=== PATIENT | male | born 1995 | race Caucasian/White ===

== ENCOUNTER 2017-02-24 18:21 | Inpatient (IN) ==
[2017-02-24 19:18] LABS: Basophils % 0.5 %; Eosinophils # 0.6 K/mcL (0.0-0.6); Eosinophils % 7.8 %; Hematocrit 43.2 % (37.5-50.1); Hemoglobin 15.2 g/dL (12.9-16.9); Immature Granulocytes % 0.4 % (0-4); Lymphocytes # 1.6 K/mcL (0.6-4.6); Lymphocytes % 21.3 %; Mean Corpuscular HGB Conc 35.2 g/dL (31.6-35.5); Mean Corpuscular Hemoglobin 28.8 pg (28.0-33.3); Monocytes # 0.4 K/mcL (0.0-1.3); Monocytes % 5.1 %; Neutrophils # 4.8 K/mcL (1.6-8.9); Platelet Count 136 K/mcL (140-400); Red Blood Count 5.27 M/mcL (4.19-5.50); Red Cell Distribution Width 11.7 % (11.5-14.5); Segmented Neutrophils % 64.9 %
--- NOTE | 2017-02-24 19:23 | Emergency Department Note ---
Disposition Clinical Impression: Delusions Disposition: Admitted As Inpatient Condition: Good Psych HPI - General Chief Complaint: ED Psychiatric Symptoms Stated Complaint: SI/HI can flip at anytime Time Seen by Provider: 02/24/17 18:52 Source: patient Mode of arrival: private vehicle Limitations: no limitations Nursing Notes Reviewed: Yes Vital Signs Reviewed: Yes - History of Present Illness HPI Narrative: 22-year-old male with history of schizophrenia, bipolar, [place], peripheral neuropathy who presents to the ER in the care of his family due to their current concerns for delusions. Family reports that he has been delusional and combative recently. He was hospitalized at [facility] for seizure-like activity and also was inpatient for psychiatry. There was concern that his opiates that he was taking was contributing to his delusions and he was taken off that. He has a complaint of chronic pain diagnosed as peripheral neuropathy. Roughly 1 month ago mother reports that he was combative at home and she called the police. She has a court ordered here showing that as of she has 30 days of guardianship. The patient was deemed incompetent by the courts. He currently denies suicidal or homicidal ideation. He denies auditory visual hallucinations. He does appear to have an unsure grasp of time. Pt complaint: medical clearance request Onset (ago): month(s) Duration: constant History of similar episodes: Yes Improves with: none Worsens with: none Context: not taking psychiatric medications Alleged intoxication: No Associated Psychiatric Symptoms: none Associated symptoms: Reports: other (Back pain) Traumatic symptoms: denies traumatic injury Treatments prior to arrival: none - Related Data Home Medications Medication Instructions Recorded Confirmed Albuterol Neb [Proventil Neb] 2.5 mg IH TID PRN 05/04/15 09/08/16 Albuterol Sulfate [Albuterol 0 puff IH Q4HR PRN 05/04/15 09/08/16 Inhaler] Pantoprazole Sodium [Protonix] 40 mg PO BID 05/04/15 09/08/16 Cholecalciferol (Vitamin D3) 50,000 unit PO QWEEK 06/08/16 09/08/16 [Vitamin D3] Dronabinol [Marinol] 5 mg PO BID 06/08/16 09/08/16 carBAMazepine [Tegretol] 200 mg PO TID 06/08/16 09/08/16 Albuterol Neb [AccuNeb] 0.63 mg IH Q8H PRN 06/13/16 09/08/16 Cyanocobalamin (B-12) [Vitamin B12] 1,000 mcg IM QMONTH 06/13/16 09/08/16 Cyanocobalamin (B-12) [Vitamin B12] 2,000 mcg PO DAILY 06/13/16 09/08/16 FLUoxetine HCl [Prozac] 60 mg PO DAILY 06/13/16 09/08/16 Folic Acid 1 mg PO DAILY 06/13/16 09/08/16 Ondansetron HCl [Zofran] 4 mg PO Q8HR PRN 06/13/16 09/08/16 Thiamine (B-1) [Vitamin B-1] 100 mg PO DAILY 06/13/16 09/08/16 OxyCODONE/APAP 10/325 [Percocet 1 each PO Q6HR 09/08/16 09/08/16 10/325 MG] Previous Rx's Medication Instructions Recorded Lisinopril-HCTZ 10-12.5 [Prinzide 2 each PO DAILY tablet 06/15/16 10-12.5] LORazepam [Ativan] 1 mg PO TID #12 tablet 09/08/16 Allergies Allergy/AdvReac Type Severity Reaction Status Date / Time duloxetine [From Cymbalta] Allergy See Verified 09/08/16 16:46 Comments gabapentin Allergy See Verified 09/08/16 16:46 Comments pregabalin [From Lyrica] Allergy SWELLING Verified 09/08/16 16:46 propranolol Allergy See Verified 09/08/16 16:46 Comments tramadol Allergy Seizure Verified 09/08/16 16:46 escitalopram [From Lexapro] AdvReac Nightmare Verified 09/08/16 16:46 Oxycodone [From OxyContin] AdvReac Nausea Verified 09/08/16 16:46 trazodone AdvReac Agitated Verified 09/08/16 16:46 All systems ED: reviewed and negative except as stated. Cardiovascular: Denies: chest pain Respiratory: Denies: dyspnea Gastrointestinal: Denies: abdominal pain Musculoskeletal: Reports: back pain (Chronic) Psychiatric: Denies: anxiety, depression, suicidal thoughts, homicidal thoughts , auditory hallucinations, visual hallucinations Past Medical History - Past Medical History Attestation: Yes The following information was validated with the patient. Source: patient Medical history: Reports: arthritis, asthma, hypertension, seizures, other Surgical history: Reports: cholecystectomy, other Psychiatric history: Reports: anxiety, depression, prior suicide attempt - Social History Smoking Status: Never smoker Smokeless Tobacco Status: Yes Alcohol use: Reports: none Drug use: Reports: none Physical Exam - General Limitations: no limitations General appearance: alert, in no apparent distress - Head Head exam: atraumatic, normocephalic, normal inspection - Eye Eye exam: Present: normal appearance, EOMI - ENT ENT exam: normal exam - Neck Neck exam: Present: normal inspection, full ROM - Chest Chest inspection: Present: normal inspection, symmetric chest wall rise - Respiratory Respiratory exam: Present: normal lung sounds bilaterally - Cardiovascular Cardiovascular exam: Present: regular rate, normal rhythm, normal heart sounds - Abdominal Exam Abdominal exam: Present: soft, Non-Tender. Absent: tenderness - Extremities Exam Extremities exam: Present: normal inspection, full ROM - Expanded Upper Extremity Exam Shoulder exam: Present: normal inspection, full ROM Arm exam: Present: normal inspection, full ROM Elbow exam: Present: normal inspection, full ROM Forearm/Wrist exam: Present: normal inspection, full ROM Hand exam: Present: normal inspection, full ROM - Expanded Lower Extremity Exam Hip/Pelvis exam: Present: normal inspection, full ROM Upper leg exam: Present: normal inspection, full ROM Knee exam: Present: normal inspection, full ROM Lower leg exam: Present: normal inspection, full ROM Ankle exam: Present: normal inspection, full ROM Foot/toe exam: Present: normal inspection, full ROM - Neurological Exam Neurological exam: Present: alert, other (GCS 15. Nonfocal neurologic exam.) - Psychiatric Psychiatric exam: Present: depressed, flat affect - Expanded Psychiatric Exam Expanded psych exam: Present: poor eye contact - Skin Skin exam: Present: warm, dry, intact, normal color Course Course Narrative: Patient seen and examined. He did have a pink slip signed by the prior attending physician. We will get medical clearance labs for psychiatric evaluation. He currently complains of back pain which is chronic. No new injuries. Vital Signs Temperature 99.0 F 02/24/17 18:29 Pulse Rate 100 02/24/17 18:29 Respiratory Rate 18 02/24/17 18:29 Blood Pressure 144/98 02/24/17 18:29 O2 Sat by Pulse Oximetry 99 02/24/17 18:29 Temperature 98.9 F 02/24/17 23:39 Pulse Rate 81 02/24/17 21:13 Respiratory Rate 18 02/24/17 23:39 Blood Pressure 148/97 02/24/17 23:39 O2 Sat by Pulse Oximetry 95 02/24/17 21:13 Oxygen Delivery Oxygen Delivery Room Air Psych - MDM Narrative Medical decision making narrative: 22-year-old male presents to the ER due to concerns for delusions as per family. Patient was medically cleared here for psychiatric evaluation. He is accepted to the psychiatric service for inpatient management. - Lab Data Lab results reviewed: Yes I reviewed the patient's lab results. Result diagrams: 02/24/17 19:11 02/24/17 19:11 Lab Results 02/24/17 02/24/17 02/24/17 Range/Units 19:11 19:11 19:30 WBC 7.4 (4.3-11.1) K/mcL RBC 5.27 (4.19-5.50) M/mcL Hgb 15.2 (12.9-16.9) g/dL Hct 43.2 (37.5-50.1) % MCV 82.0 L (83.0-100.0) fL MCH 28.8 (28.0-33.3) pg MCHC 35.2 (31.6-35.5) g/dL RDW 11.7 (11.5-14.5) % Plt Count 136 L (140-400) K/mcL MPV 10.0 (9.4-12.4) fL Immature Gran % 0.4 (0-4) % Seg Neutrophils % 64.9 % Lymphocytes % 21.3 % Monocytes % 5.1 % Eosinophils % 7.8 % Basophils % 0.5 % Neutrophils # 4.8 (1.6-8.9) K/mcL Lymphocytes # 1.6 (0.6-4.6) K/mcL Monocytes # 0.4 (0.0-1.3) K/mcL Eosinophils # 0.6 (0.0-0.6) K/mcL Basophils # 0.0 (0.0-0.2) K/mcL Sodium 140 (136-145) mEq/L Potassium 3.6 (3.5-4.5) mEq/L Chloride 103 (98-109) mEq/L Carbon Dioxide 25 (19-29) mEq/L BUN 7 L (8-26) mg/dL Creatinine 0.82 (0.72-1.25) mg/dL Est GFR ( Amer) > 60 (> 60) Est GFR (Non-Af Amer) > 60 (> 60) BUN/Creatinine Ratio 9 (6-26) Glucose 91 (70-99) mg/dL Calculated Osmolality 288 (280-300) Calcium 9.0 (8.6-10.8) mg/dL Total Bilirubin 0.3 (0.2-1.2) mg/dL Direct Bilirubin 0.1 (0.0-0.5) mg/dL Indirect Bilirubin 0.2 (0.0-1.2) mg/dL AST 16 (5-34) Units/L ALT 18 (0-55) Units/L Alkaline Phosphatase 44 (38-126) Units/L Serum Total Protein 7.6 (6.0-8.3) g/dL Albumin 4.0 (3.5-5.0) g/dL Globulin 3.6 H (2.4-3.5) g/dL Albumin/Globulin Ratio 1.1 (1.1-2.2) TSH 0.864 (0.350-4.840) mcIU/mL Urine Color Yellow (Yellow) Urine Clarity Clear (Clear) Urine pH 6.5 (5.0-8.0) pH Units Ur Specific [place] 1.025 (1.010-1.025) Urine Protein 30 H (Neg-Trace) mg/dL Urine Glucose (UA) Normal (Normal) mg/dL Urine Ketones Negative (Negative) mg/dL Urine Blood Negative (Negative) Urine Nitrite Negative (Negative) Urine Bilirubin Negative (Negative) Urine Urobilinogen Normal (Normal) mg/dL Ur Leukocyte Esterase Negative (Negative) Urine Microscopic RBC 0-3 (0-3) per hpf Urine Microscopic WBC 0-3 (0-3) per hpf Ur Squamous Epith Cells Few (None-Few) per lpf Urine Bacteria None Seen (None-Few) per hpf Hyaline Casts None Seen (None-Few) per lpf Salicylates < 5.0 L (15-30) mg/dL Urine Opiates Screen (Nertwi=179) ng/mL Acetaminophen 1.0 L (10-30) mcg/mL Ur Barbiturates Screen (Gsnmyz=938) ng/mL Valproic Acid 56.14 (50-100) mcg/mL Ur Phencyclidine Scrn (Cutoff=25) ng/mL Ur Amphetamines Screen (Lgqtgg=7174) ng/mL U Benzodiazepines Scrn (Ccoaxs=516) ng/mL Urine Cocaine Screen (Cutoff= 300) ng/mL U Marijuana (THC) Screen (Cutoff = 50) ng/mL Ethyl Alcohol < 10 (0-10) mg/dL 02/24/17 Range/Units 19:30 WBC (4.3-11.1) K/mcL RBC (4.19-5.50) M/mcL Hgb (12.9-16.9) g/dL Hct (37.5-50.1) % MCV (83.0-100.0) fL MCH (28.0-33.3) pg MCHC (31.6-35.5) g/dL RDW (11.5-14.5) % Plt Count (140-400) K/mcL MPV (9.4-12.4) fL Immature Gran % (0-4) % Seg Neutrophils % % Lymphocytes % % Monocytes % % Eosinophils % % Basophils % % Neutrophils # (1.6-8.9) K/mcL Lymphocytes # (0.6-4.6) K/mcL Monocytes # (0.0-1.3) K/mcL Eosinophils # (0.0-0.6) K/mcL Basophils # (0.0-0.2) K/mcL Sodium (136-145) mEq/L Potassium (3.5-4.5) mEq/L Chloride (98-109) mEq/L Carbon Dioxide (19-29) mEq/L BUN (8-26) mg/dL Creatinine (0.72-1.25) mg/dL Est GFR ( Amer) (> 60) Est GFR (Non-Af Amer) (> 60) BUN/Creatinine Ratio (6-26) Glucose (70-99) mg/dL Calculated Osmolality (280-300) Calcium (8.6-10.8) mg/dL Total Bilirubin (0.2-1.2) mg/dL Direct Bilirubin (0.0-0.5) mg/dL Indirect Bilirubin (0.0-1.2) mg/dL AST (5-34) Units/L ALT (0-55) Units/L Alkaline Phosphatase (38-126) Units/L Serum Total Protein (6.0-8.3) g/dL Albumin (3.5-5.0) g/dL Globulin (2.4-3.5) g/dL Albumin/Globulin Ratio (1.1-2.2) TSH (0.350-4.840) mcIU/mL Urine Color (Yellow) Urine Clarity (Clear) Urine pH (5.0-8.0) pH Units Ur Specific [place] (1.010-1.025) Urine Protein (Neg-Trace) mg/dL Urine Glucose (UA) (Normal) mg/dL Urine Ketones (Negative) mg/dL Urine Blood (Negative) Urine Nitrite (Negative) Urine Bilirubin (Negative) Urine Urobilinogen (Normal) mg/dL Ur Leukocyte Esterase (Negative) Urine Microscopic RBC (0-3) per hpf Urine Microscopic WBC (0-3) per hpf Ur Squamous Epith Cells (None-Few) per lpf Urine Bacteria (None-Few) per hpf Hyaline Casts (None-Few) per lpf Salicylates (15-30) mg/dL Urine Opiates Screen Negative (Nskzgp=181) ng/mL Acetaminophen (10-30) mcg/mL Ur Barbiturates Screen Negative (Chcucn=688) ng/mL Valproic Acid (50-100) mcg/mL Ur Phencyclidine Scrn Negative (Cutoff=25) ng/mL Ur Amphetamines Screen Negative (Xlzavf=5519) ng/mL U Benzodiazepines Scrn Negative (Pwvmvq=648) ng/mL Urine Cocaine Screen Negative (Cutoff= 300) ng/mL U Marijuana (THC) Screen Negative (Cutoff = 50) ng/mL Ethyl Alcohol (0-10) mg/dL Psychiatric Medical Clearance - Medical Clearance Checklist Medical History: No Social History Section defined Current Vitals: Last Vital Signs Temp 98.9 F 02/24/17 23:39 Pulse 81 02/24/17 21:13 Resp 18 02/24/17 23:39 BP 148/97 02/24/17 23:39 Pulse Ox 95 02/24/17 21:13 Psychiatric Lab Panel: Drug Levels and Toxicity 02/24/17 02/24/17 19:11 19:30 Urine Opiates Screen Negative Acetaminophen 1.0 L Ur Barbiturates Screen Negative Ur Phencyclidine Scrn Negative Ur Amphetamines Screen Negative U Benzodiazepines Scrn Negative Urine Cocaine Screen Negative U Marijuana (THC) Screen Negative Ethyl Alcohol < 10 Abnormal Labs: Abnormal lab results MCV 82.0 fL (83.0-100.0) L 02/24/17 19:11 Plt Count 136 K/mcL (140-400) L 02/24/17 19:11 BUN 7 mg/dL (8-26) L 02/24/17 19:11 Globulin 3.6 g/dL (2.4-3.5) H 02/24/17 19:11 Urine Protein 30 mg/dL (Neg-Trace) H 02/24/17 19:30 Salicylates < 5.0 mg/dL (15-30) L 02/24/17 19:11 Acetaminophen 1.0 mcg/mL (10-30) L 02/24/17 19:11 Attestation Statement - Attestation Attestation: I personbally interviewed and examined this patient and my medical decision- making was reviewed with the Resident Physician, Dr. Brennan. I agree with the documented findings, disposition and treatment plan as described except to the extent set forth below. Patient is a 22-year-old white male. History of schizophrenia who is brought in for worsening delusions and exacerbation of chronic pain. Patient's mother has a court-appointed custody of him and makes medical decisions on his behalf. She is concerned that he is not safe at home at this time and is concerned about him either harming himself or others. Patient at this time is complaining of an exacerbation of his chronic low back pain and his neuropathy. Parents feel that he is gradually worsening confusion and delusions. Patient's physical exam findings as documented. Patient's laboratory evaluation is unremarkable and patient is medically cleared for further psychiatric evaluation. He came to assess the patient and agrees with a psychiatric admission for further evaluation and treatment. His been cooperative and did not require any sedation during his stay. He will be admitted for further psychiatric assessment.
[2017-02-24 19:35] LABS: Alanine Aminotransferase 18 Units/L (0-55); Albumin/Globulin Ratio 1.1 (1.1-2.2); Alkaline Phosphatase 44 Units/L (38-126); Aspartate Amino Transferase 16 Units/L (5-34); BUN/Creatinine Ratio 9 (6-26); Bilirubin,Direct 0.1 mg/dL (0.0-0.5); Bilirubin,Indirect 0.2 mg/dL (0.0-1.2); Bilirubin,Total 0.3 mg/dL (0.2-1.2); Blood Urea Nitrogen 7 mg/dL (8-26); Carbon Dioxide 25 mEq/L (19-29); Chloride 103 mEq/L (98-109); Ethanol < 10 mg/dL (0-10); Globulin 3.6 g/dL (2.4-3.5); Glucose 91 mg/dL (70-99); Osmolality,Calculated 288 (280-300); Potassium 3.6 mEq/L (3.5-4.5); Salicylate < 5.0 mg/dL (15-30); Sodium 140 mEq/L (136-145); Total Protein 7.6 g/dL (6.0-8.3); eGFR For African Americans > 60 (> 60); eGFR For Non-African Americans > 60 (> 60)
[2017-02-24 19:43] LABS: Bilirubin,Urine Negative (Negative); Blood,Urine Negative (Negative); Clarity,Urine Clear (Clear); Color,Urine Yellow (Yellow); Glucose,Urine (UA) Normal (Normal); Ketones,Urine Negative (Negative); Leukocyte Esterase,Urine Negative (Negative); Nitrite,Urine Negative (Negative); PH,Urine 6.5 pH Units (5.0-8.0); Protein,Urine 30 mg/dL (Neg-Trace); Specific Gravity,Urine 1.025 (1.010-1.025); Urobilinogen,Urine Normal (Normal)
[2017-02-24 19:49] LABS: Amphetamine Screen,Urine Negative ng/mL (Cutoff=1000); Barbiturate Screen,Urine Negative ng/mL (Cutoff=200); Benzodiazepines Screen,Urine Negative ng/mL (Cutoff=200); Cannabinoid Screen,Urine Negative ng/mL (Cutoff = 50); Cocaine Screen,Urine Negative ng/mL (Cutoff= 300); Opiate Screen,Urine Negative ng/mL (Cutoff=300); Phencyclidine Screen,Urine Negative ng/mL (Cutoff=25)
[2017-02-24 19:55] LABS: Thyroid Stimulating Hormone 0.864 mcIU/mL (0.350-4.840)
[2017-02-24 19:59] LABS: Hyaline Casts,Urine None Seen per lpf (None-Few); RBC,Urine 0-3 per hpf (0-3); Squamous Epithelial Cell,Urine Few per lpf (None-Few); WBC,Urine 0-3 per hpf (0-3)
[2017-02-24 20:00] LABS: Bacteria,Urine None Seen per hpf (None-Few)
[2017-02-24 20:33] LABS: Valproate 56.14 mcg/mL (50-100)
[2017-02-24] MEDS ORDERED: MOM Conc 10 ML UD.LIQ PO PRN (23:42)
[2017-02-24] MEDS ORDERED: Mag Hydrox/Al Hydrox/Simeth 30 ML UDC PO PRN (23:42)
[2017-02-24] MEDS ORDERED: Acetaminophen 325 MG TABLET PO PRN (23:42)
[2017-02-24] MEDS ORDERED: *HR* LORazepam 2 MG/ML VIAL IM PRN (23:42)
[2017-02-24] MEDS ORDERED: hydrOXYzine pamoate 25 MG CAPSULE PO PRN (23:42)
[2017-02-24] MEDS ORDERED: *HR* LORazepam 1 MG TABLET PO PRN (23:42)
[2017-02-24] MEDS ORDERED: Haloperidol Lactate 5 MG/ML VIAL IM PRN (23:42)
[2017-02-24] MEDS ORDERED: traZODone 50 MG TABLET PO PRN (23:42)
[2017-02-24] MEDS ORDERED: Albuterol Neb 0.63 MG/3 ML VIAL IH PRN (23:45)
[2017-02-24] MEDS ORDERED: Ondansetron ODT 4 MG TAB.RAPDIS PO PRN (23:45)
[2017-02-24] MEDS ORDERED: Albuterol 2.5 MG/3 ML NEBULIZER IH PRN (23:45)
[2017-02-25] MEDS: carBAMazepine 200 MG TABLET PO SCH ×4 (01:09→21:25)
[2017-02-25] MEDS ORDERED: FLUoxetine 20 MG CAPSULE PO SCH (09:00)
[2017-02-25] MEDS: *HR* LORazepam 1 MG TABLET PO SCH ×2 (09:25→16:07)
[2017-02-25] MEDS: Folic Acid 1 MG TABLET PO SCH (09:25)
[2017-02-25] MEDS: Cyanocobalamin (B-12) 1,000 MCG TABLET PO SCH (09:26)
[2017-02-25] MEDS: Thiamine (B-1) 100 MG TABLET PO SCH (09:26)
[2017-02-25] MEDS ORDERED: NON-FORMULARY MEDICATION 1 EACH EACH (Nicotine Polacrilex [Nicotine Lozenge] 2 MG) BC SCH (14:45)
[2017-02-25] MEDS ORDERED: ARIPiprazole 10 MG TABLET PO SCH (14:45)
[2017-02-25] MEDS ORDERED: Nicotine 2 MG GUM BC PRN (15:17)
[2017-02-25] MEDS: hydrOXYzine pamoate 25 MG CAPSULE PO SCH ×2 (15:59→21:25)
[2017-02-25] MEDS: Divalproex (12 HR) 500 MG TABLET PO SCH ×2 (15:59→21:25)
[2017-02-25] MEDS ORDERED: Nicotine 2 MG GUM BC SCH (16:00)
[2017-02-25] MEDS: *HR* OxyCODONE/APAP 10/325 TABLET PO PRN (16:02)
[2017-02-25] MEDS ORDERED: NON-FORMULARY MEDICATION 1 EACH EACH (Divalproex Sodium [Depakote] 250 MG) PO SCH (17:00)
[2017-02-25] MEDS ORDERED: Mirtazapine 15 MG TABLET PO SCH (21:00)
[2017-02-25] MEDS: Mirtazapine 15 MG TABLET PO SCH (21:25)
[2017-02-26] MEDS: hydrOXYzine pamoate 25 MG CAPSULE PO SCH ×2 (08:13→20:58)
[2017-02-26] MEDS: Thiamine (B-1) 100 MG TABLET PO SCH (08:13)
[2017-02-26] MEDS: Divalproex (12 HR) 500 MG TABLET PO SCH ×2 (08:13→20:58)
[2017-02-26] MEDS: Cyanocobalamin (B-12) 1,000 MCG TABLET PO SCH (08:13)
[2017-02-26] MEDS: carBAMazepine 200 MG TABLET PO SCH ×3 (08:14→20:58)
[2017-02-26] MEDS: Folic Acid 1 MG TABLET PO SCH (08:14)
[2017-02-26] MEDS: *HR* OxyCODONE/APAP 10/325 TABLET PO PRN ×2 (08:17→15:56)
[2017-02-26] MEDS ORDERED: FLUoxetine HCl 10 MG CAPSULE PO SCH (09:00)
[2017-02-26] MEDS ORDERED: Cyanocobalamin (B-12) 1,000 MCG/ML VIAL IM SCH (09:00)
--- NOTE | 2017-02-26 13:16 | Psychiatry History & Physical ---
Date of Encounter: 02/25/17 Time of Encounter: 13:12 History of Present Illness Patient Stated Chief Complaint: "i dont know" Medicare Admission Attestation: For traditional Medicare patients the provided hospital inpatient services are reasonable and necessary and in the case of services not specified as inpatient -only under 42 CFR 419.22 (n), that they are appropriately provided as inpatient services in accordance 42 CFR 412.3. For Critical Access Hospital the patient may reasonably be expected to be discharged or transferred to a hospital within 96 hours after admission to the Critical Access Hospital. Admitted From: Home Plans for Post Hospital Care: Transfer [facility] History of Present Illness: Mr. Cha is a 22 year old male with schizoaffective disorder bipolar type [place] disorder peripheral neuropathy presented to the emergency department after his mother brought him in for concerns of decompensation self-neglect poor self- care and delusions. Mother reports that he has been delusional and combative prior to admission she reports she was hospitalized at [facility] for seizure-like activity and also was in the inpatient psychiatric unit at that time. Mother continues to state that patient was doing well until his morphine was discontinued a few months ago and then also reports that he was doing good until he was hospitalized for baclofen overdose and then reports he was doing okay or decompensated after he went to [facility] last month. On the evaluation with patient he was a very poor historian. The patient was very disheveled and unable to answer questions being asked was mumbling throughout the evaluation. Patient denied all psychiatric review of symptoms that were being asked. Patient was unsure why he was at the hospital. Patient reports that he is sleeping all the time and all day. Past Med Surg Social Fam HX - Past Medical History Medical history: arthritis, asthma, hypertension, seizures, other - Past Psychiatric History Psychiatric history: Reports: anxiety, bipolar, previous psychiatric hospitalization Past psychiatric history details: multiple inapteint psychiatric hospitalizations sa: multiple last was a overdose on baclofen past meds: mother reports a list of meds and reports for some of them not knowing why he was discontinued. current psych meds: refer to [facility] Legal hx: pt went to [facility] last month for 1 month Substance use hx: mother denies Social hx: pt lives iwth mother who recently got temp guardianship on pt due to his inability to make decisions and deemed incompetent by court. Family psychiatric history: No Family History of Suicide: None - Past Surgical History Surgical History: cholecystectomy, other - Social History Smoking Status: Never smoker Smokeless Tobacco Status: Yes Alcohol use: none Drug use: none Medications & Allergies Albuterol Neb [Proventil Neb] 2.5 mg IH TID PRN 05/04/15 [History] Albuterol Sulfate [Albuterol Inhaler] 0 puff IH Q4HR PRN 05/04/15 [History] Cholecalciferol (Vitamin D3) [Vitamin D3] 50,000 unit PO QWEEK 06/08/16 [History ] carBAMazepine [Tegretol] 200 mg PO QID 06/08/16 [History] Cyanocobalamin (B-12) [Vitamin B12] 2,000 mcg PO DAILY 06/13/16 [History] FLUoxetine HCl [Prozac] 40 mg PO BID 06/13/16 [History] Folic Acid 1 mg PO DAILY 06/13/16 [History] Ondansetron HCl [Zofran] 4 mg PO Q8HR PRN 06/13/16 [History] Thiamine (B-1) [Vitamin B-1] 100 mg PO DAILY 06/13/16 [History] OxyCODONE/APAP 10/325 [Percocet 10/325 MG] 1 each PO Q6HR PRN 09/08/16 [History] ARIPiprazole [Abilify] 10 mg PO DAILY 02/25/17 [History] Divalproex Sodium [Depakote] 250 mg PO QID 02/25/17 [History] HydrOXYzine Pamoate [Vistaril] 50 mg PO BID 02/25/17 [History] Mirtazapine [Remeron] 30 mg PO HS 02/25/17 [History] Nicotine Polacrilex [Nicotine Lozenge] 2 mg BC AD 02/25/17 [History] 3 Allergy/AdvReac Type Severity Reaction Status Date / Time duloxetine [From Cymbalta] Allergy See Verified 09/08/16 16:46 Comments gabapentin Allergy See Verified 09/08/16 16:46 Comments pregabalin [From Lyrica] Allergy SWELLING Verified 09/08/16 16:46 propranolol Allergy See Verified 09/08/16 16:46 Comments tramadol Allergy Seizure Verified 09/08/16 16:46 escitalopram [From Lexapro] AdvReac Nightmare Verified 09/08/16 16:46 Oxycodone [From OxyContin] AdvReac Nausea Verified 09/08/16 16:46 trazodone AdvReac Agitated Verified 09/08/16 16:46 Review of Systems Psychiatric: Reports: anxiety, abnormal sleep pattern, change in appetite, auditory hallucinations, memory loss, difficulty concentrating, hopelessness Mental Status Exam Patient orientation: Yes Person Level of alertness: Sedated Patient appearance: Malodorous, Inappropriate, Mal-nourished, Obese Behavior: nervous, anxious, guarded, suspicious Eye contact: Avoids Eye Contact Mood description: Labile Affect description: flat Speech pattern: Slowed, Delayed, Disorganized Speech volume: Soft/Quiet Thought process: Loose Associations Thought content: Yes Preoccupation, Yes Somatic delusion Perceptual disturbances: Yes Auditory hallucinations Attention span: Unable to Focus, Unable to Sustain Attention Memory description: Immediate Impaired, Recent Impaired Patient reliability: Not Reliable Historian Intelligence estimate: Below Average Judgment: Poor Insight: Minimal Exam - HEENT Head exam IM: Present: normal inspection Results - Vital Signs Vital signs: Temp Pulse Resp BP Pulse Ox 98.3 F 90 16 111/67 95 02/25/17 17:46 02/25/17 17:46 02/25/17 17:46 02/25/17 17:46 02/24/17 21:13 - Labs Labs: Laboratory Last Values WBC 7.4 K/mcL (4.3-11.1) 02/24/17 19:11 RBC 5.27 M/mcL (4.19-5.50) 02/24/17 19:11 Hgb 15.2 g/dL (12.9-16.9) 02/24/17 19:11 Hct 43.2 % (37.5-50.1) 02/24/17 19:11 MCV 82.0 fL (83.0-100.0) L 02/24/17 19:11 MCH 28.8 pg (28.0-33.3) 02/24/17 19:11 MCHC 35.2 g/dL (31.6-35.5) 02/24/17 19:11 RDW 11.7 % (11.5-14.5) 02/24/17 19:11 Plt Count 136 K/mcL (140-400) L 02/24/17 19:11 MPV 10.0 fL (9.4-12.4) 02/24/17 19:11 Immature Gran % 0.4 % (0-4) 02/24/17 19:11 Seg Neutrophils % 64.9 % 02/24/17 19:11 Lymphocytes % 21.3 % 02/24/17 19:11 Monocytes % 5.1 % 02/24/17 19:11 Eosinophils % 7.8 % 02/24/17 19:11 Basophils % 0.5 % 02/24/17 19:11 Neutrophils # 4.8 K/mcL (1.6-8.9) 02/24/17 19:11 Lymphocytes # 1.6 K/mcL (0.6-4.6) 02/24/17 19:11 Monocytes # 0.4 K/mcL (0.0-1.3) 02/24/17 19:11 Eosinophils # 0.6 K/mcL (0.0-0.6) 02/24/17 19:11 Basophils # 0.0 K/mcL (0.0-0.2) 02/24/17 19:11 Sodium 140 mEq/L (136-145) 02/24/17 19:11 Potassium 3.6 mEq/L (3.5-4.5) 02/24/17 19:11 Chloride 103 mEq/L (98-109) 02/24/17 19:11 Carbon Dioxide 25 mEq/L (19-29) 02/24/17 19:11 BUN 7 mg/dL (8-26) L 02/24/17 19:11 Creatinine 0.82 mg/dL (0.72-1.25) 02/24/17 19:11 Est GFR ( Amer) > 60 (> 60) 02/24/17 19:11 Est GFR (Non-Af Amer) > 60 (> 60) 02/24/17 19:11 BUN/Creatinine Ratio 9 (6-26) 02/24/17 19:11 Glucose 91 mg/dL (70-99) 02/24/17 19:11 Calculated Osmolality 288 (280-300) 02/24/17 19:11 Calcium 9.0 mg/dL (8.6-10.8) 02/24/17 19:11 Total Bilirubin 0.3 mg/dL (0.2-1.2) 02/24/17 19:11 Direct Bilirubin 0.1 mg/dL (0.0-0.5) 02/24/17 19:11 Indirect Bilirubin 0.2 mg/dL (0.0-1.2) 02/24/17 19:11 AST 16 Units/L (5-34) 02/24/17 19:11 ALT 18 Units/L (0-55) 02/24/17 19:11 Alkaline Phosphatase 44 Units/L (38-126) 02/24/17 19:11 Serum Total Protein 7.6 g/dL (6.0-8.3) 02/24/17 19:11 Albumin 4.0 g/dL (3.5-5.0) 02/24/17 19:11 Globulin 3.6 g/dL (2.4-3.5) H 02/24/17 19:11 Albumin/Globulin Ratio 1.1 (1.1-2.2) 02/24/17 19:11 TSH 0.864 mcIU/mL (0.350-4.840) 02/24/17 19:11 Urine Color Yellow (Yellow) 02/24/17 19:30 Urine Clarity Clear (Clear) 02/24/17 19:30 Urine pH 6.5 pH Units (5.0-8.0) 02/24/17 19:30 Ur Specific [place] 1.025 (1.010-1.025) 02/24/17 19:30 Urine Protein 30 mg/dL (Neg-Trace) H 02/24/17 19:30 Urine Glucose (UA) Normal mg/dL (Normal) 02/24/17 19:30 Urine Ketones Negative mg/dL (Negative) 02/24/17 19:30 Urine Blood Negative (Negative) 02/24/17 19:30 Urine Nitrite Negative (Negative) 02/24/17 19:30 Urine Bilirubin Negative (Negative) 02/24/17 19:30 Urine Urobilinogen Normal mg/dL (Normal) 02/24/17 19:30 Ur Leukocyte Esterase Negative (Negative) 02/24/17 19:30 Urine Microscopic RBC 0-3 per hpf (0-3) 02/24/17 19:30 Urine Microscopic WBC 0-3 per hpf (0-3) 02/24/17 19:30 Ur Squamous Epith Cells Few per lpf (None-Few) 02/24/17 19:30 Urine Bacteria None Seen per hpf (None-Few) 02/24/17 19:30 Hyaline Casts None Seen per lpf (None-Few) 02/24/17 19:30 Salicylates < 5.0 mg/dL (15-30) L 02/24/17 19:11 Urine Opiates Screen Negative ng/mL ([place]=506) 02/24/17 19:30 Acetaminophen 1.0 mcg/mL (10-30) L 02/24/17 19:11 Ur Barbiturates Screen Negative ng/mL (Xpjwth=167) 02/24/17 19:30 Valproic Acid 56.14 mcg/mL (50-100) 02/24/17 19:11 Ur Phencyclidine Scrn Negative ng/mL (Cutoff=25) 02/24/17 19:30 Ur Amphetamines Screen Negative ng/mL (Mbmsqj=2011) 02/24/17 19:30 U Benzodiazepines Scrn Negative ng/mL (Zwjeli=833) 02/24/17 19:30 Urine Cocaine Screen Negative ng/mL (Cutoff= 300) 02/24/17 19:30 U Marijuana (THC) Screen Negative ng/mL (Cutoff = 50) 02/24/17 19:30 Ethyl Alcohol < 10 mg/dL (0-10) 02/24/17 19:11 Assessment and Plan (1) Schizoaffective disorder, bipolar type Current visit: Yes Status: Acute Plan: Admit inpatient for safety and stabilization, Close observation, Suicide Precautions per unit protocol, Encourage participation in unit milieu, Monitor sleep, Monitor appetite, Family/Supportive other meeting Risks, benefits, side effects, alternatives discussed w/pt: Yes Patient agreeable to treatment : Yes Plans for Post Hospital Care: Transfer [facility] Care (2) Schizoaffective disorder, bipolar type Current visit: Yes Status: Acute (3) Psychosis Current visit: No Status: Acute Qualifiers: Psychosis type: unspecified psychosis type Qualified Code(s): F29 - Unspecified psychosis not due to a substance or known physiological condition
--- NOTE | 2017-02-26 14:29 | Psychiatry Progress Note ---
Date of Encounter: 02/26/17 Time of Encounter: 14:28 Subjective Interval history: Patient seen and evaluated this morning patient was in bed continues to be very unkept and disheveled patient continues to mumble patient reports that he has not been hungry discussed with patient how he did when he was on medication in the past for appetite and patient reports he did not follow reports that Remeron and Marinol help with both the that patient reports he continues to feel "tired". Patient reports that he is not feeling motivated to do anything. Patient was encouraged to take a shower and patient ultimately after much encouragement did decide to take a shower. Review of Systems Psychiatric: Reports: anxiety, abnormal sleep pattern, change in appetite, auditory hallucinations, memory loss, difficulty concentrating, hopelessness Results - Vital Signs Vital Signs: Temp Pulse Resp BP Pulse Ox 98.3 F 90 16 111/67 95 02/25/17 17:46 02/25/17 17:46 02/25/17 17:46 02/25/17 17:46 02/24/17 21:13 Assessment and Plan (1) Schizoaffective disorder, bipolar type Current visit: Yes Status: Acute Risks, benefits, side effects, alternatives discussed w/pt: Yes Patient agreeable to treatment: Yes (2) Schizoaffective disorder, bipolar type Current visit: Yes Status: Acute (3) Psychosis Current visit: No Status: Acute Qualifiers: Psychosis type: unspecified psychosis type Qualified Code(s): F29 - Unspecified psychosis not due to a substance or known physiological condition Consult Discharge Plan - Plan Referrals: [facility] [Outside] - 03/04/17 2:40 pm (The above appointment is with Dr. Adame for outpatient psychiatric assessment and medication managament services.)
[2017-02-26] MEDS: Mirtazapine 15 MG TABLET PO SCH (20:58)
[2017-02-26] MEDS ORDERED: Mirtazapine 15 MG TABLET PO SCH (21:00)
[2017-02-27] MEDS: Cyanocobalamin (B-12) 1,000 MCG TABLET PO SCH (08:14)
[2017-02-27] MEDS: FLUoxetine 20 MG CAPSULE PO SCH (08:14)
[2017-02-27] MEDS: hydrOXYzine pamoate 25 MG CAPSULE PO SCH ×2 (08:14→21:08)
[2017-02-27] MEDS: Divalproex (12 HR) 500 MG TABLET PO SCH ×2 (08:14→21:08)
[2017-02-27] MEDS: Thiamine (B-1) 100 MG TABLET PO SCH (08:15)
[2017-02-27] MEDS: carBAMazepine 200 MG TABLET PO SCH ×3 (08:15→21:08)
[2017-02-27] MEDS: Folic Acid 1 MG TABLET PO SCH (08:15)
[2017-02-27] MEDS: *HR* OxyCODONE/APAP 10/325 TABLET PO PRN ×3 (11:18→21:08)
[2017-02-27] MEDS: *HR* LORazepam 0.5 MG TABLET PO SCH ×3 (12:45→22:15)
--- NOTE | 2017-02-27 14:09 | Psychiatry Progress Note ---
Date of Encounter: 02/27/17 Time of Encounter: 14:07 Subjective Interval history: Patient seen and evaluated this morning. Patient was in his room he was more alert than the last few days patient did also start eating his meals at least 2 meals a day which has been improvement since admission patient has not had any agitation or aggression since admission. Patient did take a shower yesterday as well as today. Patient reports that "I am ready to go home". Explained to patient that he will need to get adjusted on his medications as well as take care of his ADLs. Patient was agreeable to this. Patient reports no current issues with medication and denies any current side effects with medication patient was more talkative today and was able to stay on topic and talk with this provider. Review of Systems Psychiatric: Reports: anxiety, abnormal sleep pattern, change in appetite, auditory hallucinations, memory loss, difficulty concentrating, hopelessness Results - Vital Signs Vital Signs: Temp Pulse Resp BP Pulse Ox 97.6 F 111 18 115/90 95 02/27/17 09:00 02/27/17 09:00 02/27/17 09:00 02/27/17 09:00 02/24/17 21:13 - Labs Labs: Laboratory Results - last 24 hr 02/27/17 12:22 Ammonia 53 Assessment and Plan (1) Schizoaffective disorder, bipolar type Current visit: Yes Status: Acute Risks, benefits, side effects, alternatives discussed w/pt: Yes Patient agreeable to treatment: Yes (2) Schizoaffective disorder, bipolar type Current visit: Yes Status: Acute (3) Psychosis Current visit: No Status: Acute Qualifiers: Psychosis type: unspecified psychosis type Qualified Code(s): F29 - Unspecified psychosis not due to a substance or known physiological condition Consult Discharge Plan - Plan Referrals: [facility] [Outside] - 03/04/17 2:40 pm (The above appointment is with Dr. Adame for outpatient psychiatric assessment and medication managament services.)
[2017-02-27] MEDS: Mirtazapine 15 MG TABLET PO SCH (21:08)
[2017-02-28] MEDS: Cyanocobalamin (B-12) 1,000 MCG TABLET PO SCH (08:35)
[2017-02-28] MEDS: Thiamine (B-1) 100 MG TABLET PO SCH (08:35)
[2017-02-28] MEDS: FLUoxetine 20 MG CAPSULE PO SCH (08:35)
[2017-02-28] MEDS: Folic Acid 1 MG TABLET PO SCH (08:35)
[2017-02-28] MEDS: carBAMazepine 200 MG TABLET PO SCH ×3 (08:35→20:59)
[2017-02-28] MEDS: Divalproex (12 HR) 500 MG TABLET PO SCH ×2 (08:35→21:00)
[2017-02-28] MEDS: hydrOXYzine pamoate 25 MG CAPSULE PO SCH ×2 (08:36→21:00)
[2017-02-28] MEDS: *HR* LORazepam 0.5 MG TABLET PO SCH ×3 (08:37→21:01)
--- NOTE | 2017-02-28 14:23 | Psychiatry Progress Note ---
Date of Encounter: 02/28/17 Time of Encounter: 14:21 Subjective Interval history: Pt seen and evalauted.Pt continues to his room and need prompting toshower and eat. Pt reports that he still having pain and reports he cant dostuff secondary to his pain. He continues to remain deprssed and anxious and hasno insight into his current illness and treatment. Pt continues to ask when he can go home. pt has been med compliant and has been tolerating medication well No prns required for agitation or aggression Review of Systems Psychiatric: Reports: anxiety, abnormal sleep pattern, change in appetite, auditory hallucinations, memory loss, difficulty concentrating, hopelessness Objective: Exam Patient orientation: Yes Person, Yes Time, Yes Place Level of alertness: Other Patient appearance: Unkempt Behavior: anxious, restless, guarded Psychomotor activity: Slowed Eye contact: Minimal Contact Mood description: Depressed, Anxious, Labile Speech pattern: Slowed Speech volume: Soft/Quiet Thought process: Loose Associations Thought content: Yes Paranoid delusion Judgment: Limited Insight: Minimal Results - Vital Signs Vital Signs: Temp Pulse Resp BP Pulse Ox 97 F L 64 14 110/75 95 02/28/17 09:00 02/28/17 09:00 02/28/17 09:00 02/28/17 09:00 02/24/17 21:13 Assessment and Plan (1) Schizoaffective disorder, bipolar type Current visit: Yes Status: Acute Plan: Continue hospitalization, Close observation, Encourage participation in unit milieu, Group Therapy, Monitor sleep, Monitor appetite Risks, benefits, side effects, alternatives discussed w/pt: Yes Patient agreeable to treatment : Yes (2) Schizoaffective disorder, bipolar type Current visit: Yes Status: Acute (3) Psychosis Current visit: No Status: Acute Qualifiers: Psychosis type: unspecified psychosis type Qualified Code(s): F29 - Unspecified psychosis not due to a substance or known physiological condition Consult Discharge Plan - Plan Referrals: [facility] [Outside] - 03/04/17 2:40 pm (The above appointment is with Dr. Adame for outpatient psychiatric assessment and medication managament services. You will also see Ashlie Calderon on 03/20/2017 at 1:00pm for mental health counseling services.)
[2017-02-28] MEDS: *HR* OxyCODONE/APAP 10/325 TABLET PO PRN ×2 (15:14→21:17)
[2017-02-28] MEDS: Mirtazapine 15 MG TABLET PO SCH (21:01)
[2017-03-01] MEDS: *HR* LORazepam 0.5 MG TABLET PO SCH ×3 (09:39→21:03)
[2017-03-01] MEDS: Divalproex (12 HR) 500 MG TABLET PO SCH ×2 (09:40→21:03)
[2017-03-01] MEDS: hydrOXYzine pamoate 25 MG CAPSULE PO SCH ×2 (09:40→21:02)
[2017-03-01] MEDS: Folic Acid 1 MG TABLET PO SCH (09:40)
[2017-03-01] MEDS: FLUoxetine 20 MG CAPSULE PO SCH (09:42)
[2017-03-01] MEDS: Cyanocobalamin (B-12) 1,000 MCG TABLET PO SCH (09:42)
[2017-03-01] MEDS: Thiamine (B-1) 100 MG TABLET PO SCH (09:42)
[2017-03-01] MEDS: carBAMazepine 200 MG TABLET PO SCH ×3 (09:42→21:03)
[2017-03-01] MEDS: *HR* OxyCODONE/APAP 10/325 TABLET PO PRN ×2 (10:53→17:10)
--- NOTE | 2017-03-01 13:42 | Psychiatry Progress Note ---
Date of Encounter: 03/01/17 Time of Encounter: 01:39 Subjective Interval history: Patient seen and interviewed. History and physical examination reviewed. Patient is reporting of noticing improvement in his mood. His suicidal ideations of started to subside. He is becoming more bright and hopeful. He is future oriented. Tolerating medications fairly well. Sleep and appetite is improved. Planning on attending groups and learning coping skills. I encouraged the patient to also work on safety plan. Overall doing better. Review of Systems Psychiatric: Reports: anxiety, difficulty concentrating Objective: Exam Patient orientation: Yes Person, Yes Time, Yes Place Level of alertness: Alert Patient appearance: Appropriate, Well Groomed Behavior: nervous, anxious Psychomotor activity: Normal Eye contact: Maintains Eye Contact Mood description: Depressed, Anxious Affect description: constricted Speech pattern: Normal rate, Normal rhythm, Normal tone Speech volume: Normal Thought process: Linear, Goal Oriented Thought content: No Suicidal ideation, No Homicidal ideation, No Overt delusions Perceptual disturbances: No Auditory hallucinations, No Visual hallucinations Judgment: Fair Insight: Partial Results - Vital Signs Vital Signs: Temp Pulse Resp BP Pulse Ox 97.0 F L 111 16 109/82 95 03/01/17 09:00 03/01/17 09:00 03/01/17 09:00 03/01/17 09:00 02/24/17 21:13 Assessment and Plan (1) Schizoaffective disorder, bipolar type Current visit: Yes Status: Acute Plan: Continue hospitalization, Close observation, Suicide Precautions per unit protocol, Encourage participation in unit milieu, Group Therapy, Monitor sleep, Monitor appetite Additional Plan: Possible discharge tomorrow Risks, benefits, side effects, alternatives discussed w/pt: Yes Patient agreeable to treatment: Yes Consult Discharge Plan - Plan Referrals: [facility] [Outside] - 03/04/17 2:40 pm (The above appointment is with Dr. Adame for outpatient psychiatric assessment and medication managament services. You will also see Ashlie Calderon on 03/20/2017 at 1:00pm for mental health counseling services.)
[2017-03-01] MEDS: Mirtazapine 15 MG TABLET PO SCH (21:03)
[2017-03-02] MEDS: Divalproex (12 HR) 500 MG TABLET PO SCH (08:35)
[2017-03-02] MEDS: hydrOXYzine pamoate 25 MG CAPSULE PO SCH (08:35)
[2017-03-02] MEDS: Cyanocobalamin (B-12) 1,000 MCG TABLET PO SCH (08:35)
[2017-03-02] MEDS: carBAMazepine 200 MG TABLET PO SCH (08:35)
[2017-03-02] MEDS: Thiamine (B-1) 100 MG TABLET PO SCH (08:36)
[2017-03-02] MEDS: Folic Acid 1 MG TABLET PO SCH (08:36)
[2017-03-02] MEDS: FLUoxetine 20 MG CAPSULE PO SCH (08:36)
[2017-03-02] MEDS: *HR* LORazepam 0.5 MG TABLET PO SCH (08:36)
[2017-03-02] MEDS: *HR* OxyCODONE/APAP 10/325 TABLET PO PRN (12:07)
[2017-03-02 12:20] VITALS: BP 121/84
--- NOTE | 2017-03-02 12:34 | Discharge Summary ---
Date of Encounter: 03/02/17 Time of Encounter: 11:57 Diagnosis - Discharge Diagnosis (1) Schizoaffective disorder, bipolar type Priority: Primary Status: Acute Medications - Discharge Medications Prescriptions: carBAMazepine [Tegretol] 200 mg PO TID #90 tab Divalproex (12 HR) [Depakote (12 HR)] 500 mg PO BID #60 FLUoxetine HCl [Prozac] 20 mg PO DAILY #30 hydrOXYzine pamoate [HydrOXYzine Pamoate] 50 mg PO BID #60 LORazepam [Ativan] 0.25 mg PO TID #30 tab Albuterol Neb [Proventil Neb] 2.5 mg IH TID PRN inh 03/02/17 [Rx] Cyanocobalamin (B-12) [Vitamin B12] 2,000 mcg PO DAILY tab 03/02/17 [Rx] Dicyclomine [Bentyl] 20 mg PO Q6H PRN 03/02/17 [Rx] Divalproex (12 HR) [Depakote (12 HR)] 500 mg PO BID #60 03/02/17 [Rx] Dronabinol [Marinol] 5 mg PO BIDLS 03/02/17 [Rx] Ergocalciferol (VITAMIN D2) [Drisdol (50,000 Unit)] 50,000 unit PO QWEEK [Rx] FLUoxetine HCl [Prozac] 20 mg PO DAILY #30 03/02/17 [Rx] Folic Acid 1 mg PO DAILY tab 03/02/17 [Rx] LORazepam [Ativan] 0.25 mg PO TID #30 tab 03/02/17 [Rx] Lisinopril-HCTZ 10-12.5 [Prinzide 10-12.5] 2 each PO DAILY tab 03/02/17 [Rx] Mirtazapine [Remeron] 15 mg PO HS tab 03/02/17 [Rx] Omeprazole [PriLOSEC] 20 mg PO BIDAC 03/02/17 [Rx] OxyCODONE/APAP 10/325 [Percocet 10/325 MG] 1 each PO Q6HR PRN tab 03/02/17 [Rx] Thiamine (B-1) [Vitamin B-1] 100 mg PO DAILY tab 03/02/17 [Rx] carBAMazepine [Tegretol] 200 mg PO TID #90 tab 03/02/17 [Rx] hydrOXYzine pamoate [HydrOXYzine Pamoate] 50 mg PO BID #60 03/02/17 [Rx] 3 Allergy/AdvReac Type Severity Reaction Status Date / Time duloxetine [From Cymbalta] Allergy See Verified 09/08/16 16:46 Comments gabapentin Allergy See Verified 09/08/16 16:46 Comments pregabalin [From Lyrica] Allergy SWELLING Verified 09/08/16 16:46 propranolol Allergy See Verified 09/08/16 16:46 Comments tramadol Allergy Seizure Verified 09/08/16 16:46 escitalopram [From Lexapro] AdvReac Nightmare Verified 09/08/16 16:46 Oxycodone [From OxyContin] AdvReac Nausea Verified 09/08/16 16:46 trazodone AdvReac Agitated Verified 09/08/16 16:46 Results Procedures and tests throughout hospitalization: Completed Lab Orders Category Date Time Status Ammonia Routine Lab 02/27/17 12:22 Completed Provider Date of admission: 02/24/17 23:12 Primary care physician: PCP NONE Consults: 02/27/17 11:49 Consult to Hospitalist [CONS] Routine Consulting Provider: Hospitalist Aaron Reason for Consult: new onset of confusion, related to pain? Time Notified: 11:50 Call Completed: No Discharging clinician: Lauren Naqvi Assessment and Plan - Patient/Caregiver Discharge Instructions Activity: resume usual activities as tolerated Diet: regular diet - Follow up Plan Follow up with: [facility] [Outside] - 03/04/17 2:40 pm (The above appointment is with Dr. Adame for outpatient psychiatric assessment and medication managament services. You will also see Ashlie Calderon on 03/20/2017 at 1:00pm for mental health counseling services.) Functional capacity at discharge: independent ambulation Overall status at discharge: Stable Disposition: Home, Self-Care Hospital Course Hospital course: Mr. Cha is a 22 year old male who is noted to have a diagnosis of schizoaffective disorder hospitalized for a relapse of his symptoms. Patient was becoming extremely agitated and irritable [id number] combat if with mother. Patient is also not able to provide care for himself he was delusional paranoid and agitated. After patient was hospitalized and they reviewed the symptom diagnoses and treatment plan and explained the risks benefits side effects alternatives to treatment and consequences of no treatment getting informed consent from the patient's patient's medications were adjusted as follows. Patient's Tegretol was decreased from 200 mg 4 times a day to 200 mg 3 times a day. Patient was continued on his Depakote 500 mg twice a day for mood stabilization. Patient's Prozac was decreased from 40-20 mg and Remeron was decreased from 30-15 mg at bedtime. Patient was prescribed Vistaril 50 mg twice a day for his anxiety and agitation the lorazepam was also decreased to 0.25 mg 3 times a day. Patient responded well to the medication changes and started to notice improvement in his mood and behavior. He was more calm and relaxed appropriate. His agitation and irritability and anger outbursts subsided. He was future oriented and able to attend groups and participate in activities. He was bright and cheerful and happy positive and future oriented on discharge. He was denying any suicidal or homicidal ideations or any psychotic symptoms. His discharge condition was stable. - Time Spent with Patient Total time spent providing and/or coordinating discharge services: Quality - Multiple Antipsychotics Patient discharged on 2 or more antipsychotic medications: No Procedures - Procedures Procedures: Medication Management, Crisis Stabilization, Supportive Therapy, Group Therapy, Psychoeducational Therapy Mental Status Exam - Mental Status Exam Patient orientation: Yes Person, Yes Time, Yes Place Level of alertness: Alert Patient appearance: Appropriate, Well Groomed Behavior: calm, cooperative Psychomotor activity: Normal Eye contact: Maintains Eye Contact Mood description: Euthymic/stable Affect description: congruent with mood, full range Speech pattern: Normal rate, Normal rhythm, Normal tone Speech Volume: Normal Thought process: Linear, Goal Oriented Thought Content: No Suicidal ideation, No Homicidal ideation, No Overt delusions Perceptual Disturbances: No Auditory hallucinations, No Visual hallucinations Judgment: Limited Insight: Partial
== END 2017-03-02 13:25 | disposition home or self-care (01) | DRG 885 ==
LOC: EMEROO 18:21 → SUATTDRO 23:12 → 1ANU 23:12
PROVIDERS: ADMIT Psychiatry & Neurology Psychiatry; ATTEND Psychiatry & Neurology Psychiatry

== ENCOUNTER 2021-03-16 14:39 | Inpatient (IN) ==
[2021-03-16] MEDS ORDERED: 0.9 % Sodium Chloride 1,000 ML IVC ONE ×2 (15:08→19:35)
[2021-03-16] MEDS ORDERED: Isovue-370 500 ML BOTTLE IVP ONE (15:11)
[2021-03-16 16:55] LABS: Basophils # 0.1 K/mcL (0.0-0.2); Basophils % 0.5 %; Eosinophils # 0.2 K/mcL (0.0-0.6); Eosinophils % 0.8 %; Hematocrit 31.3 % (37.5-50.1); Hemoglobin 10.1 g/dL (12.9-16.9); Immature Granulocytes % 3.7 % (0-4); Lymphocytes # 1.8 K/mcL (0.6-4.6); Lymphocytes % 8.8 %; Mean Corpuscular HGB Conc 32.3 g/dL (31.6-35.5); Mean Corpuscular Hemoglobin 26.2 pg (28.0-33.3); Mean Corpuscular Volume 81.3 fL (83.0-100.0); Monocytes # 0.9 K/mcL (0.0-1.3); Monocytes % 4.4 %; Neutrophils # 17.1 K/mcL (1.6-8.9); Platelet Count 427 K/mcL (140-400); Red Blood Count 3.85 M/mcL (4.19-5.50); Red Cell Distribution Width 14.3 % (11.5-14.5); Segmented Neutrophils % 81.8 %; White Blood Count 20.9 K/mcL (4.3-11.1)
[2021-03-16 17:04] LABS: INR 1.5; Prothrombin Time 16.6 Seconds (9.4-12.1)
[2021-03-16 17:13] LABS: Alanine Aminotransferase 25 Units/L (7-52); Albumin 3.3 g/dL (3.5-5.7); Albumin/Globulin Ratio 0.8 (1.1-2.2); Alkaline Phosphatase 115 Units/L (34-104); Aspartate Amino Transferase 21 Units/L (13-39); BUN/Creatinine Ratio 20 (6-26); Bilirubin,Direct 0.1 mg/dL (0.0-0.2); Bilirubin,Indirect 0.4 mg/dL (0.0-1.0); Bilirubin,Total 0.5 mg/dL (0.3-1.0); Blood Urea Nitrogen 15 mg/dL (6-20); Carbon Dioxide 25 mEq/L (23-29); Chloride 93 mEq/L (98-107); Globulin 4.4 g/dL (2.4-3.5); Glucose 101 mg/dL (70-105); Osmolality,Calculated 267 (280-300); Potassium 3.8 mEq/L (3.5-5.1); Sodium 128 mEq/L (136-145); Total Protein 7.7 g/dL (6.4-8.9); Troponin I < 0.03 ng/mL (< 0.04); eGFR For African Americans > 60 (> 60); eGFR For Non-African Americans > 60 (> 60)
[2021-03-16 18:04] LABS: Adenovirus Not Detected (Not Detect); Bordetella Pertussis Not Detected (Not Detect); Coronavirus 229E Not Detected (Not Detect); Coronavirus HKU1 Not Detected (Not Detect); Coronavirus NL63 Not Detected (Not Detect); Coronavirus OC43 Not Detected (Not Detect); Human Metapneumovirus Not Detected (Not Detect); Human Rhinovirus/Enterovirus Not Detected (Not Detect); Influenza A Subtype 2009 H1 Not Detected (Not Detect); Influenza B Not Detected (Not Detect); Parainfluenza Virus 1 Not Detected (Not Detect); Parainfluenza Virus 2 Not Detected (Not Detect); Parainfluenza Virus 3 Not Detected (Not Detect); Parainfluenza Virus 4 Not Detected (Not Detect); Respiratory Syncytial Virus Not Detected (Not Detect); SARS-CoV-2 Not Detected (Not Detect)
[2021-03-16 18:05] LABS: Chlamydophila pneumoniae Not Detected (Not Detect); Mycoplasma pneumoniae Not Detected (Not Detect)
[2021-03-16 18:21] LABS: Bilirubin,Urine Negative (Negative); Blood,Urine Negative (Negative); Clarity,Urine Clear (Clear); Color,Urine Light-Yellow (Yellow); Glucose,Urine (UA) Normal (Normal); Ketones,Urine Negative (Negative); Leukocyte Esterase,Urine Negative (Negative); Nitrite,Urine Negative (Negative); PH,Urine 6.5 pH Units (5.0-8.0); Protein,Urine Trace mg/dL (Neg-Trace); Specific Gravity,Urine 1.012 (1.010-1.025); Urobilinogen,Urine Normal (Normal)
[2021-03-16] MEDS ORDERED: Piperacillin/Tazobactam 3.375 GM in 0.9 % Sodium Chloride Mini Bag 100 ML IVPB ONE (19:35)
[2021-03-16] MEDS ORDERED: *HR* LORazepam 1 MG TABLET PO ONE (20:09)
[2021-03-16] MEDS ORDERED: Zonisamide 100 MG CAPSULE PO STA (20:49)
[2021-03-16] MEDS ORDERED: Naloxone 0.4 MG/ML INJ IVP PRN (21:40)
[2021-03-16] MEDS ORDERED: Ondansetron 4 MG/2 ML VIAL IVP PRN (21:40)
[2021-03-16] MEDS ORDERED: 0.9 % Sodium Chloride 1,000 ML IVC SCH (21:45)
[2021-03-16] MEDS ORDERED: Albuterol 2.5 MG/3 ML NEBULIZER IH PRN (22:18)
[2021-03-16] MEDS: *HR* OxyCODONE/APAP 10/325 TABLET PO PRN (23:07)
[2021-03-17 01:05] LABS: Hematocrit 31.5 % (37.5-50.1); Hemoglobin 9.8 g/dL (12.9-16.9); Mean Corpuscular HGB Conc 31.1 g/dL (31.6-35.5); Mean Corpuscular Hemoglobin 25.7 pg (28.0-33.3); Mean Corpuscular Volume 82.7 fL (83.0-100.0); Mean Platelet Volume 9.8 fL (9.4-12.4); Platelet Count 375 K/mcL (140-400); Red Blood Count 3.81 M/mcL (4.19-5.50); White Blood Count 15.9 K/mcL (4.3-11.1)
[2021-03-17 01:19] LABS: BUN/Creatinine Ratio 16 (6-26); Blood Urea Nitrogen 12 mg/dL (6-20); Calcium 8.8 mg/dL (8.6-10.3); Carbon Dioxide 24 mEq/L (23-29); Chloride 102 mEq/L (98-107); Glucose 117 mg/dL (70-105); Osmolality,Calculated 281 (280-300); Potassium 3.9 mEq/L (3.5-5.1); Sodium 135 mEq/L (136-145); eGFR For African Americans > 60 (> 60); eGFR For Non-African Americans > 60 (> 60)
[2021-03-17] MEDS: *HR* OxyCODONE/APAP 10/325 TABLET PO PRN ×5 (02:35→20:30)
[2021-03-17] MEDS: Piperacillin/Tazobactam 3.375 GM in 0.9 % Sodium Chloride Mini Bag 100 ML IVPB SCH ×3 (03:05→20:38)
[2021-03-17] MEDS: *HR* LORazepam 1 MG TABLET PO SCH ×2 (07:24→20:38)
[2021-03-17] MEDS: Zonisamide 100 MG CAPSULE PO SCH (07:25)
[2021-03-17] MEDS ORDERED: Ringers Solution, Lactated 500 ML IVC SCH (07:45)
[2021-03-17] MEDS: *HR* Heparin 5,000 UNIT/ML VIAL SQ SCH (18:17)
[2021-03-17] MEDS: Melatonin 3 MG TABLET PO PRN (20:38)
[2021-03-18] MEDS: *HR* OxyCODONE/APAP 10/325 TABLET PO PRN ×5 (00:30→20:25)
[2021-03-18 01:09] LABS: Basophils # 0.1 K/mcL (0.0-0.2); Basophils % 0.6 %; Eosinophils # 0.3 K/mcL (0.0-0.6); Eosinophils % 1.9 %; Hematocrit 30.4 % (37.5-50.1); Hemoglobin 9.4 g/dL (12.9-16.9); Immature Granulocytes % 3.1 % (0-4); Lymphocytes # 1.9 K/mcL (0.6-4.6); Lymphocytes % 13.3 %; Mean Corpuscular HGB Conc 30.9 g/dL (31.6-35.5); Mean Platelet Volume 9.8 fL (9.4-12.4); Monocytes # 0.7 K/mcL (0.0-1.3); Neutrophils # 11.1 K/mcL (1.6-8.9); Platelet Count 334 K/mcL (140-400); Red Blood Count 3.62 M/mcL (4.19-5.50); Red Cell Distribution Width 14.4 % (11.5-14.5); Segmented Neutrophils % 76.1 %; White Blood Count 14.5 K/mcL (4.3-11.1)
[2021-03-18 01:23] LABS: BUN/Creatinine Ratio 14 (6-26); Blood Urea Nitrogen 10 mg/dL (6-20); Calcium 8.8 mg/dL (8.6-10.3); Carbon Dioxide 23 mEq/L (23-29); Chloride 98 mEq/L (98-107); Glucose 97 mg/dL (70-105); Magnesium 1.6 mg/dL (1.6-2.6); Osmolality,Calculated 273 (280-300); Phosphorous 4.6 mg/dL (2.7-4.5); Sodium 132 mEq/L (136-145); eGFR For African Americans > 60 (> 60); eGFR For Non-African Americans > 60 (> 60)
[2021-03-18] MEDS: Piperacillin/Tazobactam 3.375 GM in 0.9 % Sodium Chloride Mini Bag 100 ML IVPB SCH ×3 (03:05→20:16)
[2021-03-18] MEDS: *HR* Heparin 5,000 UNIT/ML VIAL SQ SCH ×2 (04:59→16:22)
[2021-03-18] MEDS: *HR* LORazepam 1 MG TABLET PO SCH ×2 (07:41→20:15)
[2021-03-18] MEDS: Zonisamide 100 MG CAPSULE PO SCH (07:42)
[2021-03-18] MEDS ORDERED: Piperacillin/Tazobactam 3.375 GM VIAL ONE (19:14)
[2021-03-18] MEDS: Nicotine 14 MG PATCH.TD24 TD SCH (20:16)
[2021-03-19] MEDS: *HR* OxyCODONE/APAP 10/325 TABLET PO PRN ×6 (00:30→20:56)
[2021-03-19] MEDS: Piperacillin/Tazobactam 3.375 GM in 0.9 % Sodium Chloride Mini Bag 100 ML IVPB SCH (03:05)
[2021-03-19 04:31] LABS: Basophils # 0.1 K/mcL (0.0-0.2); Basophils % 0.7 %; Eosinophils # 0.3 K/mcL (0.0-0.6); Eosinophils % 2.3 %; Hematocrit 29.3 % (37.5-50.1); Hemoglobin 9.3 g/dL (12.9-16.9); Immature Granulocytes % 2.2 % (0-4); Lymphocytes # 1.5 K/mcL (0.6-4.6); Lymphocytes % 11.5 %; Mean Corpuscular HGB Conc 31.7 g/dL (31.6-35.5); Mean Corpuscular Hemoglobin 26.3 pg (28.0-33.3); Mean Platelet Volume 10.3 fL (9.4-12.4); Monocytes # 0.7 K/mcL (0.0-1.3); Neutrophils # 10.2 K/mcL (1.6-8.9); Platelet Count 343 K/mcL (140-400); Red Blood Count 3.53 M/mcL (4.19-5.50); Red Cell Distribution Width 14.4 % (11.5-14.5); Segmented Neutrophils % 78.3 %; White Blood Count 13.1 K/mcL (4.3-11.1)
[2021-03-19 04:51] LABS: BUN/Creatinine Ratio 18 (6-26); Blood Urea Nitrogen 14 mg/dL (6-20); Carbon Dioxide 24 mEq/L (23-29); Chloride 99 mEq/L (98-107); Glucose 104 mg/dL (70-105); Magnesium 1.6 mg/dL (1.6-2.6); Osmolality,Calculated 279 (280-300); Phosphorous 4.7 mg/dL (2.7-4.5); Potassium 3.7 mEq/L (3.5-5.1); Sodium 134 mEq/L (136-145); eGFR For African Americans > 60 (> 60); eGFR For Non-African Americans > 60 (> 60)
[2021-03-19] MEDS: *HR* Heparin 5,000 UNIT/ML VIAL SQ SCH ×2 (05:05→17:06)
[2021-03-19] MEDS: DilTIAZem CD (24hr) 120 MG CAP.ER.24H PO SCH (08:32)
[2021-03-19] MEDS: *HR* LORazepam 1 MG TABLET PO SCH ×2 (08:32→20:08)
[2021-03-19] MEDS: Nicotine 14 MG PATCH.TD24 TD SCH (08:33)
[2021-03-19] MEDS: Zonisamide 100 MG CAPSULE PO SCH (08:33)
[2021-03-19] MEDS ORDERED: amLODIPine 5 MG TABLET PO SCH (09:00)
[2021-03-19] MEDS: Melatonin 3 MG TABLET PO PRN (20:03)
[2021-03-19] MEDS: Vancomycin 2,000 MG/520 ML IV.SOLN IVPB SCH ×3 (20:07→21:05)
[2021-03-20] MEDS: *HR* OxyCODONE/APAP 10/325 TABLET PO PRN ×4 (01:15→20:20)
[2021-03-20] MEDS: *HR* Heparin 5,000 UNIT/ML VIAL SQ SCH ×2 (05:07→16:20)
[2021-03-20] MEDS: Nicotine 14 MG PATCH.TD24 TD SCH (07:54)
[2021-03-20] MEDS: Zonisamide 100 MG CAPSULE PO SCH (07:54)
[2021-03-20] MEDS: *HR* LORazepam 1 MG TABLET PO SCH ×2 (07:55→20:18)
[2021-03-20] MEDS: DilTIAZem CD (24hr) 120 MG CAP.ER.24H PO SCH (07:55)
[2021-03-20] MEDS: Vancomycin 2,000 MG/520 ML IV.SOLN IVPB SCH ×2 (08:01→20:19)
[2021-03-20 08:52] LABS: Basophils # 0.1 K/mcL (0.0-0.2); Basophils % 0.7 %; Eosinophils # 0.6 K/mcL (0.0-0.6); Eosinophils % 5.9 %; Hematocrit 28.8 % (37.5-50.1); Immature Granulocytes % 2.9 % (0-4); Lymphocytes # 1.2 K/mcL (0.6-4.6); Lymphocytes % 10.7 %; Mean Corpuscular HGB Conc 31.3 g/dL (31.6-35.5); Mean Corpuscular Hemoglobin 25.9 pg (28.0-33.3); Mean Platelet Volume 9.9 fL (9.4-12.4); Monocytes # 0.5 K/mcL (0.0-1.3); Monocytes % 4.7 %; Neutrophils # 8.1 K/mcL (1.6-8.9); Platelet Count 316 K/mcL (140-400); Red Blood Count 3.47 M/mcL (4.19-5.50); Red Cell Distribution Width 14.2 % (11.5-14.5); Segmented Neutrophils % 75.1 %; White Blood Count 10.7 K/mcL (4.3-11.1)
[2021-03-20 09:12] LABS: Magnesium 1.5 mg/dL (1.6-2.6); Phosphorous 4.9 mg/dL (2.7-4.5)
[2021-03-20] MEDS: Magnesium Oxide 400 MG TABLET PO SCH (11:24)
[2021-03-21] MEDS: *HR* OxyCODONE/APAP 10/325 TABLET PO PRN ×4 (00:35→16:19)
[2021-03-21] MEDS: *HR* Heparin 5,000 UNIT/ML VIAL SQ SCH ×2 (05:22→20:09)
[2021-03-21] MEDS: Piperacillin/Tazobactam 3.375 GM in 0.9 % Sodium Chloride Mini Bag 100 ML IVPB SCH (07:18)
[2021-03-21] MEDS: Zonisamide 100 MG CAPSULE PO SCH (09:27)
[2021-03-21] MEDS: Magnesium Oxide 400 MG TABLET PO SCH (09:27)
[2021-03-21] MEDS: DilTIAZem CD (24hr) 120 MG CAP.ER.24H PO SCH (09:28)
[2021-03-21] MEDS: Nicotine 14 MG PATCH.TD24 TD SCH (09:28)
[2021-03-21 10:41] LABS: BUN/Creatinine Ratio 12 (6-26); Blood Urea Nitrogen 8 mg/dL (6-20); Calcium 9.1 mg/dL (8.6-10.3); Carbon Dioxide 26 mEq/L (23-29); Chloride 99 mEq/L (98-107); Glucose 95 mg/dL (70-105); Magnesium 1.5 mg/dL (1.6-2.6); Osmolality,Calculated 278 (280-300); Phosphorous 4.3 mg/dL (2.7-4.5); Potassium 3.9 mEq/L (3.5-5.1); Sodium 135 mEq/L (136-145); eGFR For African Americans > 60 (> 60); eGFR For Non-African Americans > 60 (> 60)
[2021-03-21] MEDS ORDERED: *HR* LORazepam 2 MG/ML VIAL IVP ONE (10:58)
[2021-03-21] MEDS: *HR* LORazepam 1 MG TABLET PO SCH ×2 (11:25→20:10)
[2021-03-21] MEDS: Vancomycin 2,000 MG/520 ML IV.SOLN IVPB SCH ×2 (11:25→20:21)
[2021-03-22] MEDS: *HR* Heparin 5,000 UNIT/ML VIAL SQ SCH ×2 (04:36→18:53)
[2021-03-22] MEDS: *HR* OxyCODONE/APAP 10/325 TABLET PO PRN ×2 (04:37→09:58)
[2021-03-22 04:54] LABS: Hematocrit 30.7 % (37.5-50.1); Hemoglobin 9.7 g/dL (12.9-16.9); Mean Corpuscular HGB Conc 31.6 g/dL (31.6-35.5); Mean Corpuscular Hemoglobin 26.1 pg (28.0-33.3); Mean Corpuscular Volume 82.7 fL (83.0-100.0); Mean Platelet Volume 10.1 fL (9.4-12.4); Platelet Count 326 K/mcL (140-400); Red Blood Count 3.71 M/mcL (4.19-5.50); Red Cell Distribution Width 14.3 % (11.5-14.5); White Blood Count 11.5 K/mcL (4.3-11.1)
[2021-03-22 05:06] LABS: BUN/Creatinine Ratio 14 (6-26); Blood Urea Nitrogen 10 mg/dL (6-20); Calcium 9.3 mg/dL (8.6-10.3); Carbon Dioxide 24 mEq/L (23-29); Chloride 102 mEq/L (98-107); Glucose 89 mg/dL (70-105); Osmolality,Calculated 283 (280-300); Potassium 3.7 mEq/L (3.5-5.1); Sodium 137 mEq/L (136-145); eGFR For African Americans > 60 (> 60); eGFR For Non-African Americans > 60 (> 60)
[2021-03-22] MEDS: Magnesium Oxide 400 MG TABLET PO SCH (09:58)
[2021-03-22] MEDS: *HR* LORazepam 1 MG TABLET PO SCH ×2 (09:58→21:27)
[2021-03-22] MEDS: Zonisamide 100 MG CAPSULE PO SCH (09:58)
[2021-03-22] MEDS: DilTIAZem CD (24hr) 120 MG CAP.ER.24H PO SCH (09:58)
[2021-03-22] MEDS: Vancomycin 2,000 MG/520 ML IV.SOLN IVPB SCH (09:59)
[2021-03-22] MEDS: Nicotine 14 MG PATCH.TD24 TD SCH (09:59)
[2021-03-22] MEDS: *HR* OxyCODONE Immed Rel 15 MG TABLET PO PRN (18:53)
[2021-03-22] MEDS: Sulfamethoxazole/Trimeth DS 1 EACH TABLET PO SCH (21:25)
[2021-03-23] MEDS: *HR* OxyCODONE Immed Rel 15 MG TABLET PO PRN ×5 (00:03→21:32)
[2021-03-23] MEDS: *HR* Heparin 5,000 UNIT/ML VIAL SQ SCH ×2 (05:01→16:55)
[2021-03-23] MEDS: *HR* LORazepam 1 MG TABLET PO SCH ×2 (09:24→19:26)
[2021-03-23] MEDS: Zonisamide 100 MG CAPSULE PO SCH (09:24)
[2021-03-23] MEDS: DilTIAZem CD (24hr) 120 MG CAP.ER.24H PO SCH (09:24)
[2021-03-23] MEDS: Magnesium Oxide 400 MG TABLET PO SCH (09:25)
[2021-03-23] MEDS: Sulfamethoxazole/Trimeth DS 1 EACH TABLET PO SCH ×2 (09:25→19:26)
[2021-03-23] MEDS: Nicotine 14 MG PATCH.TD24 TD SCH (09:25)
[2021-03-24] MEDS: *HR* OxyCODONE Immed Rel 15 MG TABLET PO PRN ×6 (01:38→22:43)
[2021-03-24] MEDS: *HR* Heparin 5,000 UNIT/ML VIAL SQ SCH ×2 (05:36→17:18)
[2021-03-24] MEDS: Zonisamide 100 MG CAPSULE PO SCH (08:21)
[2021-03-24] MEDS: DilTIAZem CD (24hr) 120 MG CAP.ER.24H PO SCH (08:22)
[2021-03-24] MEDS: *HR* LORazepam 1 MG TABLET PO SCH ×2 (08:22→21:26)
[2021-03-24] MEDS: Nicotine 14 MG PATCH.TD24 TD SCH (08:22)
[2021-03-24] MEDS: Magnesium Oxide 400 MG TABLET PO SCH (08:22)
[2021-03-24] MEDS: Sulfamethoxazole/Trimeth DS 1 EACH TABLET PO SCH ×2 (08:23→21:26)
[2021-03-24] MEDS: tiZANidine 4 MG TABLET PO PRN ×2 (10:07→21:26)
[2021-03-25] MEDS: *HR* Heparin 5,000 UNIT/ML VIAL SQ SCH ×2 (05:06→16:57)
[2021-03-25] MEDS: *HR* OxyCODONE Immed Rel 15 MG TABLET PO PRN ×3 (06:37→19:46)
[2021-03-25] MEDS ORDERED: *HR* HYDROmorphone (PF) 1 MG/ML SYRINGE IVP ONE ×2 (07:56→16:28)
[2021-03-25] MEDS: Zonisamide 100 MG CAPSULE PO SCH (08:56)
[2021-03-25] MEDS: DilTIAZem CD (24hr) 120 MG CAP.ER.24H PO SCH (08:56)
[2021-03-25] MEDS: *HR* LORazepam 1 MG TABLET PO SCH ×2 (08:56→20:48)
[2021-03-25] MEDS: Sulfamethoxazole/Trimeth DS 1 EACH TABLET PO SCH ×2 (08:56→20:49)
[2021-03-25] MEDS: Nicotine 14 MG PATCH.TD24 TD SCH (08:56)
[2021-03-25] MEDS: Magnesium Oxide 400 MG TABLET PO SCH (08:56)
[2021-03-25] MEDS: tiZANidine 4 MG TABLET PO PRN (12:40)
[2021-03-26] MEDS: *HR* OxyCODONE Immed Rel 15 MG TABLET PO PRN ×5 (00:09→22:37)
[2021-03-26] MEDS: tiZANidine 4 MG TABLET PO PRN ×2 (00:10→17:50)
[2021-03-26] MEDS: *HR* Heparin 5,000 UNIT/ML VIAL SQ SCH ×2 (05:47→17:50)
[2021-03-26] MEDS: Zonisamide 100 MG CAPSULE PO SCH (09:15)
[2021-03-26] MEDS: DilTIAZem CD (24hr) 120 MG CAP.ER.24H PO SCH (09:15)
[2021-03-26] MEDS: *HR* LORazepam 1 MG TABLET PO SCH ×2 (09:15→20:43)
[2021-03-26] MEDS: Magnesium Oxide 400 MG TABLET PO SCH (09:15)
[2021-03-26] MEDS: Sulfamethoxazole/Trimeth DS 1 EACH TABLET PO SCH ×2 (09:15→20:43)
[2021-03-26] MEDS: Nicotine 14 MG PATCH.TD24 TD SCH (09:22)
[2021-03-26 09:58] LABS: Hematocrit 30.6 % (37.5-50.1); Hemoglobin 9.7 g/dL (12.9-16.9); Mean Corpuscular HGB Conc 31.7 g/dL (31.6-35.5); Mean Corpuscular Hemoglobin 26.2 pg (28.0-33.3); Mean Corpuscular Volume 82.7 fL (83.0-100.0); Mean Platelet Volume 9.8 fL (9.4-12.4); Platelet Count 303 K/mcL (140-400); Red Cell Distribution Width 15.4 % (11.5-14.5); White Blood Count 11.9 K/mcL (4.3-11.1)
[2021-03-26 10:13] LABS: BUN/Creatinine Ratio 13 (6-26); Blood Urea Nitrogen 10 mg/dL (6-20); Calcium 9.2 mg/dL (8.6-10.3); Carbon Dioxide 27 mEq/L (23-29); Chloride 98 mEq/L (98-107); Glucose 101 mg/dL (70-105); Osmolality,Calculated 275 (280-300); Potassium 4.1 mEq/L (3.5-5.1); Sodium 133 mEq/L (136-145); eGFR For African Americans > 60 (> 60); eGFR For Non-African Americans > 60 (> 60)
[2021-03-27] MEDS ORDERED: Acetaminophen IV 1,000 MG/100 ML BAG IVPB ONE (02:46)
[2021-03-27] MEDS: *HR* OxyCODONE Immed Rel 15 MG TABLET PO PRN ×5 (03:08→21:46)
[2021-03-27] MEDS: *HR* Heparin 5,000 UNIT/ML VIAL SQ SCH ×2 (05:08→17:05)
[2021-03-27] MEDS: tiZANidine 4 MG TABLET PO PRN (05:08)
[2021-03-27] MEDS: *HR* LORazepam 1 MG TABLET PO SCH ×2 (08:17→21:46)
[2021-03-27] MEDS: Magnesium Oxide 400 MG TABLET PO SCH (08:17)
[2021-03-27] MEDS: Zonisamide 100 MG CAPSULE PO SCH (08:17)
[2021-03-27] MEDS: Sulfamethoxazole/Trimeth DS 1 EACH TABLET PO SCH ×2 (08:17→21:46)
[2021-03-27] MEDS: Nicotine 14 MG PATCH.TD24 TD SCH (10:29)
[2021-03-28] MEDS: *HR* OxyCODONE Immed Rel 15 MG TABLET PO PRN ×4 (06:05→21:06)
[2021-03-28] MEDS: *HR* Heparin 5,000 UNIT/ML VIAL SQ SCH (06:05)
[2021-03-28] MEDS: Magnesium Oxide 400 MG TABLET PO SCH (08:42)
[2021-03-28] MEDS: Sulfamethoxazole/Trimeth DS 1 EACH TABLET PO SCH (08:42)
[2021-03-28] MEDS: Zonisamide 100 MG CAPSULE PO SCH (08:42)
[2021-03-28] MEDS: Nicotine 14 MG PATCH.TD24 TD SCH (08:43)
[2021-03-28] MEDS: *HR* LORazepam 1 MG TABLET PO SCH (08:43)
[2021-03-28] MEDS: tiZANidine 4 MG TABLET PO PRN (13:27)
[2021-03-28 14:19] VITALS: BP 107/71; PULSE 104; TEMP 98.4; O2SAT 92
== END 2021-03-28 21:30 | DRG 720 ==
LOC: 3ANU 14:39 → EMEROOARM 14:39 → SUATTDRO 19:48 → 3ANU 21:00 → SUATTDRO 03-17 19:50
PROVIDERS: ADMIT Internal Medicine; ATTEND Internal Medicine